=== PATIENT | female | born 1995 | race African-American/Black ===

== ENCOUNTER 2017-04-27 10:39 | Emergency (ER) | payer MEDICAID | END 2017-04-27 11:32 | disposition home or self-care (01) | LOC: D.ER 10:39 | DX: J06.9 Acute upper respiratory infection, unspecified (principal); J20.9 Acute bronchitis, unspecified; J01.90 Acute sinusitis, unspecified; F17.200 Nicotine dependence, unspecified, uncomplicated ==

== ENCOUNTER 2017-08-24 10:32 | Outpatient (CLI) | payer MEDICAID ==
[~2017-08-24] VITALS: Ht 157.5 cm; Wt 78.4 kg
[2017-08-24 11:39] LABS: BASOPHILS 0.3 % (0-2); EOSINOPHILS 0.6 % (0-7); HEMATOCRIT 33.2 % (36.0-48.0); HEMOGLOBIN 11.3 g/dL (12-16); IMMATURE GRANULOCYTES 4.1 % (0-5); LYMPHOCYTES 23.3 % (15-50); MCH 31.7 pg (26.0-34.0); MCV 93.3 fL (80.0-100.0); MEAN PLATELET VOLUME 9.7 fL (7.4-10.4); MONOCYTES 6.3 % (2-11); NEUTROPHILS 65.4 % (40-80); PLATELET COUNT 203 10x3/uL (130-400); RBC 3.56 10x6/uL (4.00-5.40); RDW 13.6 % (11.5-14.5); WBC 6.9 10x3/uL (4.8-10.8)
[2017-08-24 11:46] LABS: UDS - AMPHET NEGATIVE QUAL (NEGATIVE); UDS - BARB NEGATIVE QUAL (NEGATIVE); UDS - BENZO NEGATIVE QUAL (NEGATIVE); UDS - COCAINE NEGATIVE QUAL (NEGATIVE); UDS - OPIATE NEGATIVE QUAL (NEGATIVE); UDS - PCP NEGATIVE QUAL (NEGATIVE); UDS - THC NEGATIVE QUAL (NEGATIVE)
[2017-08-24 12:06] LABS: APPEARANCE HAZY (CLEAR); BACTERIA MODERATE /hpf (NONE SEEN); BILIRUBIN NEGATIVE (NEGATIVE); COLOR DK YELLOW (YELLOW); GLUCOSE NEGATIVE (NEGATIVE); KETONE NEGATIVE (NEGATIVE); MUCUS >1+ /lpf (NONE SEEN); NITRITE NEGATIVE (NEGATIVE); PROTEIN TRACE mg/dL (NEGATIVE); WHITE CELLS - URINE 0-5 /hpf (0-5)
[2017-08-24 12:07] LABS: RED CELLS - URINE 0-5 /hpf (0-5)
[2017-08-24 12:13] LABS: ALBUMIN 2.4 g/dL (3.4-5.0); ALKALINE PHOSPHATASE 175 U/L (46-116); ALT (SGPT) 26 U/L (10-68); BILIRUBIN - DIRECT 0.06 mg/dL (0.00-0.30); BILIRUBIN - INDIRECT 0.14 mg/dL (0.00-1.00); CALC OSMOLALITY 270 mosm/kg (275-300); CALCIUM 8.3 mg/dL (8.5-10.1); CARBON DIOXIDE 20.5 mmol/L (21.0-32.0); CHLORIDE - SERUM 104 mmol/L (98-107); CREATININE - SERUM 0.6 mg/dL (0.6-1.3); GLUCOSE 82 mg/dL (74-106); POTASSIUM - SERUM 3.5 mmol/L (3.5-5.1); PROTEIN - SERUM 6.5 g/dL (6.4-8.2); SODIUM 137 mmol/L (136-145); UREA NITROGEN 6 mg/dL (7-18); URIC ACID 4.3 mg/dL (2.6-7.2); eGFR NON AFRICAN AMERICAN > 90 mL/min (90-120)
[2017-08-24 20:46] VITALS: BP 123/67; Ht 157.5 cm; Wt 78.4 kg
[2017-08-24 22:49] LABS: HEMATOCRIT 32.9 % (36.0-48.0); HEMOGLOBIN 11.2 g/dL (12-16); MCH 32.2 pg (26.0-34.0); MCV 94.5 fL (80.0-100.0); MEAN PLATELET VOLUME 9.9 fL (7.4-10.4); RBC 3.48 10x6/uL (4.00-5.40); RDW 13.9 % (11.5-14.5); WBC 6.1 10x3/uL (4.8-10.8)
[2017-08-26 09:46] LABS: RAPID PLASMA REAGIN Non Reactive (Non Reactive)
== END 2017-08-25 10:42 | disposition home or self-care (01) | DRG 951 ==
LOC: D.LDO 10:32 → D.LABREF 10:32 → D.LD 20:31 → D.LDO 20:31 → D.LD 08-25 10:42 → D.LDO 08-25 10:42
PROVIDERS: Obstetrics & Gynecology
DX: Z53.29 Procedure and treatment not carried out because of patient's decision for other reasons (principal)

== ENCOUNTER 2017-08-26 08:55 | Inpatient (IN) | payer MEDICAID ==
[~2017-08-26] VITALS: Ht 157.5 cm; Wt 78.0 kg
[2017-08-26] VITALS (10 sets, daily range): BP systolic 99–137; BP diastolic 58–85; Ht 157.5 cm; Wt 78.0 kg
--- NOTE | ~2017-08-26 | OP ---
PATIENT NAME: KEITH POE MEDICAL RECORD: [id number] :94 LOCATION:[id number] ADMISSION DATE:08/26/17 SURGEON: COSMO SALINAS MD DATE OF OPERATION: 08/26/2017 PREOPERATIVE DIAGNOSES: 1. at 40 weeks' gestation. 2. History of prior section. POST-DELIVERY DIAGNOSES: 1. at 40 weeks' gestation. 2. History of prior section. PROCEDURE: Repeat low transverse section. SURGEON: Cosmo Salinas MD ANESTHESIOLOGIST: Jak Magana MD ANESTHETIC: Spinal. FINDINGS: Viable female , vertex presentation, Apgars 9 and 9, weight 2787 grams. Meconium stained fluid. The uterus, tubes, and ovaries are unremarkable. SPECIMEN REMOVED: Placenta. SPECIMEN DISPOSITION: Pathology. ESTIMATED BLOOD LOSS: 700 mL. FLUIDS: 1600 mL of lactated Ringer's. URINE OUTPUT: 275 mL of clear urine. COMPLICATIONS: None. DRAINS: Lopez to gravity. INDICATIONS: The patient is a 21-year-old G2, para 1 with history of prior section, desiring . The patient has not gone in labor as of the 40th week and is scheduled for a . The risks and benefits of this procedure have been described. The patient acknowledges understanding. DESCRIPTION OF PROCEDURE: After informed consent was assured, the patient was taken to the operating room, anesthetic was obtained. The patient is now prepped and draped in the usual sterile fashion. An incision was made over the scar and carried down to the underlying layer of the fascia, which was opened in the midline and extended laterally. The rectus bellies were dissected free, and DeLee all-purpose retractor inserted. Bladder flaps developed and then the retractor was now reinserted. Low transverse hysterotomy was performed. was delivered onto the abdomen atraumatically with the above findings. The cord was doubly clamped and cut and the was passed to the attendance. The placenta was delivered via Crede maneuver and Pitocin administered. Uterus is now exteriorized, cleared of all clot and debris, and OPERATIVE REPORT [id number] KEITH POE closed in a running locked fashion with chromic stitch. After the close of the uterine hysterotomy, the uterus was returned to the abdomen. Pelvis was irrigated and the rectus bellies were reapproximated in the midline. Fascia was closed with looped PDS. Subcutaneous tissues inspected. Bleeding vessels cauterized and the skin was reapproximated with a 3-0 Monocryl on a Yimi needle. Dermabond was applied. Sponge, lap, and needle count was correct times 2. TRANSINT:[id number] Voice Confirmation ID: [id number] DOCUMENT ID: [id number] COSMO SALINAS MD CC: [id number] DICTATION DATE: 08/26/17 1149 PIPELINE SYSTEMS OPERATOR: 08/26/17 1233 ADM IN [facility] [address] [id number]
[2017-08-27 06:05] VITALS: BP 111/62
[2017-08-27 07:20] VITALS: BP 119/76
[2017-08-27 16:01] VITALS: BP 116/72
[2017-08-27 19:52] VITALS: BP 117/62
[2017-08-27 23:48] VITALS: BP 116/64
[2017-08-28 03:52] VITALS: BP 128/80
[2017-08-28 07:06] VITALS: BP 114/62
[2017-08-28] MEDS ORDERED: PERCOCET 5-3251 TAB PO (07:37)
[2017-08-28] MEDS ORDERED: IBUPROFEN800 MG PO (07:38)
== END 2017-08-28 12:15 | disposition home or self-care (01) | DRG 766 ==
LOC: D.LD 08:55 → D.SDCHOLD 10:00 → D.LD 08-28 12:15
PROVIDERS: Obstetrics & Gynecology
PROC: 10D00Z1 Extraction of Products of Conception, Low, Open Approach (ICD-10-PCS; principal; 2017-08-26 10:00)
DX: O34.211 Maternal care for low transverse scar from previous cesarean delivery (principal); Z3A.40 40 weeks gestation of pregnancy; Z37.0 Single live birth; O77.0 Labor and delivery complicated by meconium in amniotic fluid